=== PATIENT | female | born 1995 | race Caucasian/White ===

== ENCOUNTER 2021-05-19 08:33 | Emergency (ER) | payer OTHER ==
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
[2021-05-19] MEDS ORDERED: Acetaminophen 500 MG Tab PO ONE (10:00)
== END 2021-05-19 10:15 ==
LOC: JP.ED 08:33
DX: S06.0X0A Concussion without loss of consciousness, initial encounter (principal); S00.83XA Contusion of other part of head, initial encounter; F10.120 Alcohol abuse with intoxication, uncomplicated; M62.838 Other muscle spasm; Y90.5 Blood alcohol level of 100-119 mg/100 ml; Z88.6 Allergy status to analgesic agent; Y04.0XXA Assault by unarmed brawl or fight, initial encounter; Y92.009 Unspecified place in unspecified non-institutional (private) residence as the place of occurrence of the external cause
CPT/HCPCS: 36415; 70450; 70486; 80053; 80305-QW; 80307; 85025; 99285-25